=== PATIENT | female | born 1940 | race Caucasian/White ===

== ENCOUNTER 2018-07-16 14:21 | Inpatient (IN) | payer MEDICARE | END 2018-07-22 10:55 | disposition home or self-care (01) | LOC: SSTAY O 14:21 → MED 3N 07-19 11:25 → SSTAY O 20:14 → MED 3N 20:11 → ICU 2S 07-17 09:42 | PROC: 02100A3 Bypass Coronary Artery, One Artery from Coronary Artery with Autologous Arterial Tissue, Open Approach (ICD-10-PCS; principal; 2018-07-17 07:02) | PROC: 0210099 Bypass Coronary Artery, One Artery from Left Internal Mammary with Autologous Venous Tissue, Open Approach (ICD-10-PCS; 2018-07-17 07:02) | PROC: 06BP4ZZ Excision of Right Saphenous Vein, Percutaneous Endoscopic Approach (ICD-10-PCS; 2018-07-17 07:02) | PROC: 02L70ZK Occlusion of Left Atrial Appendage, Open Approach (ICD-10-PCS; 2018-07-17 07:02) | DX: I25.10 Atherosclerotic heart disease of native coronary artery without angina pectoris (principal); Z86.73 Personal history of transient ischemic attack (TIA), and cerebral infarction without residual deficits ==

== ENCOUNTER 2021-01-16 12:30 | Inpatient (IN) | payer MEDICARE ==
[~2021-01-16] VITALS: Ht 165.1 cm; Wt 78.4 kg
[~2021-01-16 12:30] MED LIST: ASPI81TA52 PO; ATOR40TA PO; CHOL10002 PO; COL100C PO; HYDR-4383 PO; LORA-512 PO; METO50TA16 PO; MULT-1085 PO; OMEG1CAP46 PO
[2021-01-16 13:13] LABS: BASOPHILS # (AUTO) 0.1 X10'3 (0-0.2); BASOPHILS % (AUTO) 0.8 % (0-1); EOSINOPHILS # (AUTO) 0.2 X10'3 (0-0.9); EOSINOPHILS % (AUTO) 2.4 % (0-6); HEMATOCRIT 41.2 % (35.0-45.0); HEMOGLOBIN 13.6 g/dl (12.0-16.0); LYMPHOCYTES # (AUTO) 1.6 X10'3 (1.1-4.8); LYMPHOCYTES % (AUTO) 20.2 % (21-51); MEAN CORPUSCULAR HEMOGLOBIN 29.3 PG (27.0-31.0); MEAN CORPUSCULAR VOLUME 88.7 FL (78-98); MEAN PLATELET VOLUME 8.4 FL (7.4-10.4); MONOCYTES # (AUTO) 0.7 X10'3 (0-0.9); MONOCYTES % (AUTO) 8.3 % (2-12); NEUTROPHILS # (AUTO) 5.5 X10'3 (1.8-7.7); NEUTROPHILS % (AUTO) 68.3 % (42-75); PLATELET COUNT 220 X10'3 (140-440); RED BLOOD COUNT 4.65 X10'6 (4.20-5.60); RED CELL DISTRIBUTION WIDTH 14.9 % (11.5-14.5); WHITE BLOOD COUNT 8.1 X10'3 (4.5-11.0)
[2021-01-16 13:29] LABS: ALANINE AMINOTRANSFERASE 18 U/L (12-78); ALBUMIN 3.6 G/DL (3.4-5.0); ALBUMIN/GLOBULIN RATIO 0.9 (1.1-1.5); ALKALINE PHOSPHATASE 112 IU/L (46-116); ANION GAP 9 (8-16); ASPARTATE AMINO TRANSFERASE 13 U/L (10-37); BILIRUBIN,TOTAL 0.4 MG/DL (0.1-1.0); BLOOD UREA NITROGEN 16 MG/DL (7-18); BUN/CREATININE RATIO 15.8 (6.6-38.0); CALCIUM 8.8 MG/DL (8.5-10.1); CHLORIDE 107 MMOL/L (99-107); CREATININE 1.01 MG/DL (0.40-0.90); GLUCOSE 112 MG/DL (70-104); POTASSIUM 3.8 MMOL/L (3.5-5.1); SODIUM 142 MMOL/L (135-145); TOTAL CARBON DIOXIDE 25.6 MMOL/L (24-32); TOTAL PROTEIN 7.4 G/DL (6.4-8.2); eGFR 53 ML/MIN
[2021-01-16] MEDS ORDERED: iohexol 350MG/ML 100ml bottle IV ONE (14:21)
[2021-01-16] MEDS ORDERED: ondansetron/PF 4mg/2ml inj IV PRN (15:20)
[2021-01-16] MEDS ORDERED: magnesium 4gm in 100ml NS 100 ML IV PRN (15:20)
[2021-01-16] MEDS ORDERED: potassium Cl 20 mEq SR tablet PO PRN ×2 (15:20)
[2021-01-16] MEDS ORDERED: acetaminophen 325mg tablet PO PRN (15:20)
[2021-01-16] MEDS ORDERED: potassium Cl 40MEQ/1/2NS 520ml 520 ML IV PRN ×2 (15:20)
[2021-01-16] MEDS ORDERED: PERFLUTREN PROTEIN-A MICROSPHR (Optison) 0.22 MG/ML 3ML VIAL IV ONE (15:20)
[2021-01-16] MEDS ORDERED: magnesium Cl slow-release 64mg tablet PO PRN (15:20)
[2021-01-16] MEDS ORDERED: magnesium 2GM in 50ml NS 50 ML IV PRN (15:20)
[2021-01-16] MEDS ORDERED: LOP12.5T PO (18:13)
[2021-01-16] MEDS ORDERED: LISI20TA PO (18:13)
[2021-01-16] MEDS: K and/or MAG REPLACEMENT MC SCH (19:47)
[2021-01-16] MEDS: normal saline 1000ml 1,000 ML IV SCH (19:51)
[2021-01-16] MEDS ORDERED: temazepam 15mg capsule PO PRN (21:00)
[2021-01-17 01:20] VITALS: BP_SYST 151; BP_SYST 160; BP_DIAS 83; BP_DIAS 88
--- NOTE | 2021-01-17 01:20 | NUR ---
Patient arrived from ER on [facility] at this time and walked from [facility] to bed without difficulty.
--- NOTE | 2021-01-17 02:20 | NUR ---
When asked if the numbness was gone to her right face she said it went all away around 5 on Monday night. She also expressed that she had some vertigo on and some blurred vision for last couple of days. But now she feels fine and is staying so she can have the Echo and MRI/MRA and hopes to go home soon.
[2021-01-17] MEDS: normal saline 1000ml 1,000 ML IV SCH (02:40)
[2021-01-17 06:00] VITALS: BP 115/75
--- NOTE | 2021-01-17 06:05 | NUR ---
RECEIVED REPORT FROM HARVEY WAGNER
--- NOTE | 2021-01-17 06:20 | NUR ---
Problems reprioritized. Patient report given, questions answered & plan of care reviewed with Karo GABRIEL.
[2021-01-17 07:04] LABS: BASOPHILS % (AUTO) 0.7 % (0-1); EOSINOPHILS # (AUTO) 0.1 X10'3 (0-0.9); EOSINOPHILS % (AUTO) 2.1 % (0-6); HEMATOCRIT 40.3 % (35.0-45.0); HEMOGLOBIN 13.2 g/dl (12.0-16.0); LYMPHOCYTES # (AUTO) 1.4 X10'3 (1.1-4.8); LYMPHOCYTES % (AUTO) 21.9 % (21-51); MEAN CORPUSCULAR HGB CONC 32.8 g/dL (33.0-36.5); MEAN CORPUSCULAR VOLUME 88.5 FL (78-98); MEAN PLATELET VOLUME 8.2 FL (7.4-10.4); MONOCYTES # (AUTO) 0.7 X10'3 (0-0.9); MONOCYTES % (AUTO) 10.2 % (2-12); NEUTROPHILS # (AUTO) 4.2 X10'3 (1.8-7.7); NEUTROPHILS % (AUTO) 65.1 % (42-75); PLATELET COUNT 191 X10'3 (140-440); RED BLOOD COUNT 4.55 X10'6 (4.20-5.60); RED CELL DISTRIBUTION WIDTH 14.4 % (11.5-14.5); WHITE BLOOD COUNT 6.5 X10'3 (4.5-11.0)
[2021-01-17 07:10] LABS: ALBUMIN 3.4 G/DL (3.4-5.0); ANION GAP 8 (8-16); BLOOD UREA NITROGEN 13 MG/DL (7-18); BUN/CREATININE RATIO 13.5 (6.6-38.0); CALCIUM 8.7 MG/DL (8.5-10.1); CHLORIDE 110 MMOL/L (99-107); CREATININE 0.96 MG/DL (0.40-0.90); GLUCOSE 104 MG/DL (70-104); MAGNESIUM 2.3 MG/DL (1.5-2.4); POTASSIUM 4.3 MMOL/L (3.5-5.1); SODIUM 144 MMOL/L (135-145); TOTAL CARBON DIOXIDE 25.6 MMOL/L (24-32); eGFR 56 ML/MIN
[2021-01-17] MEDS: K and/or MAG REPLACEMENT MC SCH (08:00)
--- NOTE | 2021-01-17 12:46 | NUR ---
PT D/C WITH INSTRUCTIONS, UNDERSTANDING OF INSTRUCTIONS AND W/ALL BELONGINGS WALKING OUT TO PRIVATE VEHICLE TO GO HOME TO F/U W/PCP
--- NOTE | 2021-01-17 15:23 | NUR ---
hospitalist f/u with [facility] tele med in regards to mri reading possibly embolic, pt symptoms had resolved by the time I was taking care of her, and it was recommended by dr. falcon to have the patient take plavix and asprin as well as to f/u w/her pcp in regards to tele monitoring, sent a page to hospitalist to let hospitalist know about the soc. dr. roe
--- NOTE | 2021-01-17 15:34 | NUR ---
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
== END 2021-01-17 12:45 | disposition home or self-care (01) | DRG 66 ==
LOC: ER 12:30 → ED HOLD 15:20 → ORTHO 4S 01-17 01:00
PROVIDERS: ADMIT Internal Medicine; ATTEND Internal Medicine
PROC: B3251ZZ Computerized Tomography (CT Scan) of Bilateral Common Carotid Arteries using Low Osmolar Contrast (ICD-10-PCS; principal; 2021-01-16)
PROC: B32G1ZZ Computerized Tomography (CT Scan) of Bilateral Vertebral Arteries using Low Osmolar Contrast (ICD-10-PCS; 2021-01-16)
PROC: B32R1ZZ Computerized Tomography (CT Scan) of Intracranial Arteries using Low Osmolar Contrast (ICD-10-PCS; 2021-01-16)
PROC: B3281ZZ Computerized Tomography (CT Scan) of Bilateral Internal Carotid Arteries using Low Osmolar Contrast (ICD-10-PCS; 2021-01-16)
DX: I63.9 Cerebral infarction, unspecified (principal); E78.5 Hyperlipidemia, unspecified; I25.10 Atherosclerotic heart disease of native coronary artery without angina pectoris; R29.700 NIHSS score 0; Z86.73 Personal history of transient ischemic attack (TIA), and cerebral infarction without residual deficits; Z95.1 Presence of aortocoronary bypass graft; Z80.9 Family history of malignant neoplasm, unspecified; Z84.89 Family history of other specified conditions; Z79.899 Other long term (current) drug therapy; Z79.82 Long term (current) use of aspirin
CPT/HCPCS: 36415; 70450; 70496; 70498; 70551; 80048; 80053; 82948; 83735; 85025; 85610; 93005; 93306; 97161; 97530; 99285; G0378; J7030; Q9967

== ENCOUNTER 2023-05-22 09:49 | Inpatient (IN) | payer MEDICARE ==
[2023-05-22] VITALS (9 sets, daily range): BP systolic 106–115; BP diastolic 61–67; PULSE 127–147; RESP 7–29; TEMP 97.1; O2SAT 98–99
[~2023-05-22] VITALS: Ht 165.1 cm; Wt 73.0 kg
[~2023-05-22 09:49] MED LIST changes: +AMOX-580 PO; -ASPI81TA52 PO; +ASPI81TA53 PO; +ATOR-2 PO; -ATOR40TA PO; -COL100C PO; +FURO20TA4 PO; -HYDR-4383 PO; +LISI10TA27 PO; +LOP12.5T PO; -LORA-512 PO; -METO50TA16 PO; +OMEG-79 PO; -OMEG1CAP46 PO; +SACU1TAB PO; +SPIR25TA PO; +TICA90TA PO
[2023-05-22] MEDS ORDERED: ketamine 10mg/ml 20ml inj 100 MG in normal saline 100ml IV soln 90 ML IV SCH (10:10)
[2023-05-22 10:13] LABS: BASOPHILS % (AUTO) 0.1 % (0-1); EOSINOPHILS % (AUTO) 0.2 % (0-6); HEMATOCRIT 36.6 % (35.0-45.0); HEMOGLOBIN 12.1 g/dl (12.0-16.0); LYMPHOCYTES # (AUTO) 0.8 X10'3 (1.1-4.8); LYMPHOCYTES % (AUTO) 4.9 % (21-51); MEAN CORPUSCULAR HEMOGLOBIN 29.1 PG (27.0-31.0); MEAN CORPUSCULAR VOLUME 88.4 FL (78-98); MONOCYTES # (AUTO) 1.5 X10'3 (0-0.9); MONOCYTES % (AUTO) 9.3 % (2-12); NEUTROPHILS # (AUTO) 13.9 X10'3 (1.8-7.7); NEUTROPHILS % (AUTO) 85.5 % (42-75); PLATELET COUNT 287 X10'3 (140-440); RED BLOOD COUNT 4.14 X10'6 (4.20-5.60); RED CELL DISTRIBUTION WIDTH 13.7 % (11.5-14.5); WHITE BLOOD COUNT 16.3 X10'3 (4.5-11.0)
[2023-05-22] MEDS: ketamine 10mg/ml 20ml inj vial IV ONE (10:20)
[2023-05-22] MEDS ORDERED: amiodarone 50MG/ML inj IV ONE (10:20)
[2023-05-22] MEDS ORDERED: amiodarone 150mg/dext, iso-os 100 ML IV ONE (10:25)
[2023-05-22] MEDS: amiodarone 150mg/dext, iso-os 100 ML IV ONE ×2 (10:27→14:23)
[2023-05-22 10:33] LABS: ALANINE AMINOTRANSFERASE 252 U/L (12-78); ALBUMIN 1.9 G/DL (3.4-5.0); ALBUMIN/GLOBULIN RATIO 0.4 (1.1-1.5); ALKALINE PHOSPHATASE 143 IU/L (46-116); ANION GAP 18 (8-16); ASPARTATE AMINO TRANSFERASE 177 U/L (10-37); BILIRUBIN,TOTAL 0.9 MG/DL (0.1-1.0); BLOOD UREA NITROGEN 45 MG/DL (7-18); BUN/CREATININE RATIO 25.9 (10.0-20.0); CALCIUM 8.8 MG/DL (8.5-10.1); CHLORIDE 95 MMOL/L (99-107); CREATININE 1.74 MG/DL (0.40-0.90); GLUCOSE 131 MG/DL (70-104); PRO BRAIN NATRIURETIC PEPTIDE 13522 PG/ML (0-450); SODIUM 133 MMOL/L (135-145); TOTAL CARBON DIOXIDE 20.5 MMOL/L (24-32); TOTAL PROTEIN 6.8 G/DL (6.4-8.2); eCRCL 23 ML/MIN; eGFR 28 ML/MIN
[2023-05-22 10:34] LABS: POTASSIUM 2.6 MMOL/L (3.5-5.1)
[2023-05-22] MEDS: normal saline 1000ML IV soln IVB ONE ×3 (11:00→12:09)
[2023-05-22] MEDS: ondansetron/PF 4mg/2ml inj IV ONE (11:05)
[2023-05-22] MEDS: potassium Cl 20 mEq SR tablet PO ONE (11:05)
[2023-05-22] MEDS: potassium Cl 40MEQ/1/2NS 520ml 520 ML IV SCH (12:17)
[2023-05-22] MEDS ORDERED: magnesium hydroxide 30ml (MOM) UD suspension PO PRN ×2 (13:55→18:10)
[2023-05-22] MEDS ORDERED: magnesium 2GM in 50ml NS 50 ML IV PRN ×2 (13:55→18:10)
[2023-05-22] MEDS ORDERED: ondansetron/PF 4mg/2ml inj IV PRN ×2 (13:55→18:10)
[2023-05-22] MEDS: K and/or MAG REPLACEMENT MC SCH ×2 (13:55→20:25)
[2023-05-22] MEDS ORDERED: morphine 2 MG/ML inj. syringe IV PRN (13:55)
[2023-05-22] MEDS ORDERED: acetaminophen 325mg tablet PO PRN ×3 (13:55→18:10)
[2023-05-22] MEDS ORDERED: magnesium 4gm in 100ml NS 100 ML IV PRN ×2 (13:55→18:10)
[2023-05-22] MEDS ORDERED: morphine 4 MG/ML inj SYRINge IV PRN (13:55)
[2023-05-22] MEDS: amiodarone/D5 360MG/200ML BAG 200 ML IV SCH (14:03)
[2023-05-22] MEDS: normal saline 1000ml 1,000 ML IV SCH ×2 (14:05→19:16)
[2023-05-22] MEDS: normal saline 500ml IV soln 500 ML IV ONE (14:12)
[2023-05-22] MEDS: normal saline 1000ml 1,000 ML IVB ONE ×2 (14:14→15:03)
[2023-05-22] MEDS ORDERED: LidoCAINE 2% Topical Jelly 11mL syringe TOP ONE (14:20)
[2023-05-22 14:21] LABS: MAGNESIUM 2.1 MG/DL (1.5-2.4)
[2023-05-22] MEDS: digoxin 250mcg/ml 2ml ampule IV ONE ×2 (14:23→20:39)
[2023-05-22] MEDS: albumin (human) 25% 100 ML IV solution IV ONE (14:24)
[2023-05-22] MEDS: LIDOcaine 2% 10ml TOPICAL JELLY (Urojet) TP ONE (14:29)
[2023-05-22] MEDS: LidoCAINE 2% Topical Jelly 11mL syringe TOP ONE (14:45)
[2023-05-22] MEDS: albumin (Human) 5% 250ml 250 ML IV ONE (17:39)
[2023-05-22] MEDS ORDERED: magnesium Cl slow-release 64mg tablet PO PRN (18:10)
[2023-05-22] MEDS ORDERED: potassium Cl 20 mEq SR tablet PO PRN ×2 (18:10)
[2023-05-22] MEDS ORDERED: mag hydrox/Alum hydrox/simeth 30ml oral suspension PO PRN (18:10)
[2023-05-22] MEDS: docusate sod 100mg capsule PO SCH (19:16)
[2023-05-22] MEDS: CefTRIAXone/D5W-Rocephin 1gm 50 ML IV SCH (19:21)
[2023-05-22] MEDS: normal saline 1000ml 1,000 ML IV STA (19:30)
[2023-05-22] MEDS: clopidogrel 300mg tablet PO ONE (19:53)
[2023-05-22] MEDS: apixaban 5mg tablet PO SCH (19:54)
[2023-05-22 20:14] LABS: BILIRUBIN,URINE NEGATIVE (Neg); CLARITY,URINE CLEAR (Clear); COLOR,URINE YELLOW (Yellow); GLUCOSE, URINE NEGATIVE (Neg); KETONES,URINE NEGATIVE (Neg); LEUKOCYTE ESTERASE ,URINE NEGATIVE (Neg); NITRITES, URINE NEGATIVE (Neg); OCCULT BLOOD,URINE SMALL (Neg); PH,URINE 5.5 (4.8-8.0); PROTEIN,URINE TRACE mg/dl (Neg); UROBILINOGEN,URINE 0.2 E.U/dL (0.2-1.0)
[2023-05-22 20:18] LABS: UA COLLECTION TYPE FOLEY CATH
[2023-05-22 20:25] LABS: MUCUS STRANDS FEW /LPF (Neg); SQUAMOUS EPITHELIAL CELL,UR FEW /LPF (FEW); URIC ACID CRYSTALS 2+ /HPF (NEGATIVE)
[2023-05-22 20:27] LABS: BACTERIA,URINE 1+ /HPF (Neg); RBC,URINE 0-2 /HPF (0-2); WBC,URINE 0-4 /HPF (0-4)
[2023-05-22 20:28] LABS: TRANSITIONAL EPI CELLS,URINE FEW /HPF
[2023-05-22] MEDS: diltiazem 5mg/ml 5ml inj. IV ONE (21:08)
[2023-05-23] VITALS (29 sets, daily range): BP systolic 90–126; BP diastolic 49–75; PULSE 77–153; RESP 10–29; TEMP 97.2–98.5; O2SAT 95–98
[2023-05-23] MEDS ORDERED: heparin, porcine 5000 units/ml vial SQ SCH
[2023-05-23] MEDS: diltiazem-NS 100mg/100ml 100 ML IV SCH (00:34)
[2023-05-23] MEDS: azithromycin/NS 500mg/250ml 250 ML IV SCH (00:41)
[2023-05-23] MEDS: digoxin 250mcg/ml 2ml ampule IV ONE (01:26)
[2023-05-23] MEDS: clopidogrel 75mg tablet PO SCH (09:47)
[2023-05-23] MEDS: metoprolol tartrate 50mg tablet PO SCH (09:47)
[2023-05-23] MEDS: aspirin 81mg tab.chew PO SCH (09:47)
[2023-05-23 09:59] LABS: BASOPHILS % (AUTO) 0.1 % (0-1); EOSINOPHILS # (AUTO) 0.1 X10'3 (0-0.9); EOSINOPHILS % (AUTO) 1.2 % (0-6); HEMATOCRIT 31.5 % (35.0-45.0); HEMOGLOBIN 10.5 g/dl (12.0-16.0); LYMPHOCYTES # (AUTO) 0.7 X10'3 (1.1-4.8); LYMPHOCYTES % (AUTO) 6.2 % (21-51); MEAN CORPUSCULAR HEMOGLOBIN 29.4 PG (27.0-31.0); MEAN CORPUSCULAR HGB CONC 33.4 g/dL (33.0-36.5); MEAN PLATELET VOLUME 7.8 FL (7.4-10.4); MONOCYTES # (AUTO) 1.1 X10'3 (0-0.9); NEUTROPHILS # (AUTO) 9.8 X10'3 (1.8-7.7); NEUTROPHILS % (AUTO) 83.5 % (42-75); PLATELET COUNT 258 X10'3 (140-440); RED BLOOD COUNT 3.58 X10'6 (4.20-5.60); WHITE BLOOD COUNT 11.8 X10'3 (4.5-11.0)
[2023-05-23 10:07] LABS: APTT 33 SECONDS (22-32); INR 1.1 INR; PROTHROMBIN TIME 12.2 SECONDS (9.0-12.0)
[2023-05-23 10:17] LABS: ALANINE AMINOTRANSFERASE 206 U/L (12-78); ALBUMIN 1.7 G/DL (3.4-5.0); ALBUMIN/GLOBULIN RATIO 0.4 (1.1-1.5); ALKALINE PHOSPHATASE 115 IU/L (46-116); ANION GAP 14 (8-16); ASPARTATE AMINO TRANSFERASE 123 U/L (10-37); BILIRUBIN,TOTAL 0.5 MG/DL (0.1-1.0); BLOOD UREA NITROGEN 21 MG/DL (7-18); BUN/CREATININE RATIO 21.6 (10.0-20.0); CALCIUM 7.6 MG/DL (8.5-10.1); CHLORIDE 105 MMOL/L (99-107); CREATININE 0.97 MG/DL (0.40-0.90); DIGOXIN 0.7 NG/ML (0.9-1.9); GLUCOSE 144 MG/DL (70-104); MAGNESIUM 1.8 MG/DL (1.5-2.4); PHOSPHORUS 1.8 MG/DL (2.3-4.5); POTASSIUM 3.4 MMOL/L (3.5-5.1); SODIUM 137 MMOL/L (135-145); TOTAL PROTEIN 5.8 G/DL (6.4-8.2); eCRCL 42 ML/MIN; eGFR 55 ML/MIN
[2023-05-23] MEDS: amiodarone/D5 360MG/200ML BAG 200 ML IV SCH (12:30)
[2023-05-23] MEDS: ipratropium/albuterol 3ml nebule NEB SCH (13:45)
[2023-05-23] MEDS ORDERED: ipratropium/albuterol 3ml nebule NEB PRN (13:45)
[2023-05-23] MEDS: potassium Cl 20 mEq SR tablet PO PRN (14:58)
[2023-05-23] MEDS: CefTRIAXone/D5W-Rocephin 1gm 50 ML IV SCH (18:00)
[2023-05-23] MEDS ORDERED: iohexol 350MG/ML 100ml bottle IV ONE (19:43)
[2023-05-23 20:24] LABS: D-DIMER 5.21 MG/L FEU (0-0.50)
[2023-05-23] MEDS: atorvastatin 20mg tablet PO SCH (20:29)
[2023-05-24] VITALS (25 sets, daily range): BP systolic 100–167; BP diastolic 55–94; PULSE 82–151; RESP 9–31; TEMP 97–97.3; O2SAT 96–99
[2023-05-24 01:46] LABS: BASOPHILS % (AUTO) 0.1 % (0-1); EOSINOPHILS # (AUTO) 0.1 X10'3 (0-0.9); EOSINOPHILS % (AUTO) 1.3 % (0-6); HEMATOCRIT 27.2 % (35.0-45.0); HEMOGLOBIN 9.1 g/dl (12.0-16.0); LYMPHOCYTES # (AUTO) 0.7 X10'3 (1.1-4.8); LYMPHOCYTES % (AUTO) 7.2 % (21-51); MEAN CORPUSCULAR HEMOGLOBIN 29.5 PG (27.0-31.0); MEAN CORPUSCULAR HGB CONC 33.6 g/dL (33.0-36.5); MEAN CORPUSCULAR VOLUME 87.6 FL (78-98); MEAN PLATELET VOLUME 7.5 FL (7.4-10.4); MONOCYTES # (AUTO) 0.9 X10'3 (0-0.9); MONOCYTES % (AUTO) 10.2 % (2-12); NEUTROPHILS # (AUTO) 7.5 X10'3 (1.8-7.7); NEUTROPHILS % (AUTO) 81.2 % (42-75); PLATELET COUNT 259 X10'3 (140-440); RED CELL DISTRIBUTION WIDTH 14.3 % (11.5-14.5); WHITE BLOOD COUNT 9.3 X10'3 (4.5-11.0)
[2023-05-24 01:53] LABS: APTT 36 SECONDS (22-32); INR 1.3 INR; PROTHROMBIN TIME 14.1 SECONDS (9.0-12.0)
[2023-05-24 02:00] LABS: ALANINE AMINOTRANSFERASE 146 U/L (12-78); ALBUMIN 1.4 G/DL (3.4-5.0); ALBUMIN/GLOBULIN RATIO 0.4 (1.1-1.5); ALKALINE PHOSPHATASE 94 IU/L (46-116); ANION GAP 14 (8-16); ASPARTATE AMINO TRANSFERASE 75 U/L (10-37); BILIRUBIN,TOTAL 0.3 MG/DL (0.1-1.0); BLOOD UREA NITROGEN 12 MG/DL (7-18); BUN/CREATININE RATIO 15.8 (10.0-20.0); CALCIUM 7.3 MG/DL (8.5-10.1); CHLORIDE 107 MMOL/L (99-107); CREATININE 0.76 MG/DL (0.40-0.90); GLUCOSE 114 MG/DL (70-104); MAGNESIUM 1.5 MG/DL (1.5-2.4); PHOSPHORUS 1.3 MG/DL (2.3-4.5); POTASSIUM 3.2 MMOL/L (3.5-5.1); SODIUM 139 MMOL/L (135-145); TOTAL CARBON DIOXIDE 17.8 MMOL/L (24-32); TOTAL PROTEIN 4.9 G/DL (6.4-8.2); eCRCL 53 ML/MIN; eGFR 73 ML/MIN
[2023-05-24] MEDS: potassium Cl 20 mEq SR tablet PO PRN (02:46)
[2023-05-24 09:52] LABS: ALANINE AMINOTRANSFERASE 138 U/L (12-78); ALBUMIN 1.4 G/DL (3.4-5.0); ALBUMIN/GLOBULIN RATIO 0.4 (1.1-1.5); ALKALINE PHOSPHATASE 87 IU/L (46-116); ANION GAP 10 (8-16); ASPARTATE AMINO TRANSFERASE 70 U/L (10-37); BILIRUBIN,TOTAL 0.3 MG/DL (0.1-1.0); BLOOD UREA NITROGEN 9 MG/DL (7-18); BUN/CREATININE RATIO 14.5 (10.0-20.0); CALCIUM 6.9 MG/DL (8.5-10.1); CHLORIDE 111 MMOL/L (99-107); CREATININE 0.62 MG/DL (0.40-0.90); GLUCOSE 133 MG/DL (70-104); POTASSIUM 3.2 MMOL/L (3.5-5.1); SODIUM 139 MMOL/L (135-145); TOTAL CARBON DIOXIDE 17.7 MMOL/L (24-32); TOTAL PROTEIN 4.8 G/DL (6.4-8.2); eCRCL 65 ML/MIN; eGFR > 90 ML/MIN
[2023-05-24] MEDS ORDERED: ondansetron 4mg rapidly disintigrating tab PO PRN (11:00)
[2023-05-24] MEDS: potassium Cl 40MEQ/1/2NS 520ml 520 ML IV PRN (12:35)
[2023-05-24] MEDS ORDERED: digoxin 250mcg (0.25mg) tablet PO ONE (12:45)
[2023-05-24] MEDS: digoxin 125mcg (0.125mg) tablet PO ONE (13:23)
[2023-05-24] MEDS: metoprolol tartrate 50mg tablet PO SCH (14:34)
[2023-05-25] VITALS (20 sets, daily range): BP systolic 131–180; BP diastolic 63–83; PULSE 80–107; RESP 8–33; TEMP 97.3–98.3; O2SAT 94–100
[2023-05-25 09:09] LABS: ABG BASE EXCESS -6.1 mmol/L (-2.0-2.0); ABG HCO3 17.6 mmol/L (22.0-26.0); ABG OXYGEN SATURATION 95.2 % (94-97); ABG PO2 (T) 71.9 mmHg (75.0-100.0); FCOHb 0.3 % (0.0-3.9); FHHb 4.8 % (0.0-5.0); FLOW 5 L/min; FMetHb 0.3 % (0.0-1.5); FO2Hb 94.6 % (94-97); MODE NASAL CANNULA; TOTAL HEMOGLOBIN 11.4 G/dl (12.0-16.0)
[2023-05-25] MEDS: captoPRIL 25mg tablet PO SCH (09:27)
[2023-05-25 11:21] LABS: ABG BASE EXCESS -2.7 mmol/L (-2.0-2.0); ABG HCO3 20.1 mmol/L (22.0-26.0); ABG OXYGEN SATURATION 98.1 % (94-97); ABG PCO2 (T) 29.2 mmHg (32.0-45.0); ABG PH (T) 7.456 (7.350-7.450); ABG PO2 (T) 99.1 mmHg (75.0-100.0); ALLEN'S TEST POSITIVE; FCOHb 0.3 % (0.0-3.9); FHHb 1.9 % (0.0-5.0); FMetHb 0.3 % (0.0-1.5); FO2Hb 97.5 % (94-97); MODE MASK - BIPAP; TOTAL HEMOGLOBIN 12.1 G/dl (12.0-16.0)
[2023-05-25] MEDS ORDERED: hydrALAZINE 20mg/ml inj. IV PRN (11:55)
[2023-05-25] MEDS: azithromycin 250mg tablet PO SCH (11:58)
[2023-05-25] MEDS: furosemide 40mg/4ml inj IV ONE (12:11)
[2023-05-25] MEDS: methylPREDNISolone sod succ 125mg/2ml vial IV ONE (12:11)
[2023-05-25] MEDS: piperacillin/tazo 3.375gm/50ml 50 ML IV SCH (14:05)
[2023-05-25] MEDS: amiodarone 200mg tablet PO SCH (18:13)
[2023-05-25] MEDS: methylPREDNISolone sod succ/PF 40mg inj. IV SCH (19:58)
[2023-05-25] MEDS: metoprolol succinate 25mg (24-HOUR) SR. Tablet PO SCH (19:58)
[2023-05-26] VITALS (14 sets, daily range): BP systolic 99–156; BP diastolic 48–83; PULSE 58–105; RESP 12–26; TEMP 97.3–98.1; O2SAT 94–99
[2023-05-26 05:20] LABS: BASOPHILS % (AUTO) 0.1 % (0-1); EOSINOPHILS % (AUTO) 0 % (0-6); HEMATOCRIT 28.3 % (35.0-45.0); HEMOGLOBIN 9.6 g/dl (12.0-16.0); LYMPHOCYTES # (AUTO) 0.4 X10'3 (1.1-4.8); MEAN CORPUSCULAR HEMOGLOBIN 29.5 PG (27.0-31.0); MEAN CORPUSCULAR HGB CONC 33.9 g/dL (33.0-36.5); MEAN PLATELET VOLUME 7.3 FL (7.4-10.4); MONOCYTES # (AUTO) 0.4 X10'3 (0-0.9); MONOCYTES % (AUTO) 2.9 % (2-12); NEUTROPHILS # (AUTO) 12.2 X10'3 (1.8-7.7); PLATELET COUNT 383 X10'3 (140-440); RED BLOOD COUNT 3.26 X10'6 (4.20-5.60); RED CELL DISTRIBUTION WIDTH 14.2 % (11.5-14.5)
[2023-05-26 05:23] LABS: APTT 33 SECONDS (22-32); INR 1.3 INR
[2023-05-26 05:27] LABS: ALANINE AMINOTRANSFERASE 122 U/L (12-78); ALBUMIN 1.7 G/DL (3.4-5.0); ALBUMIN/GLOBULIN RATIO 0.4 (1.1-1.5); ALKALINE PHOSPHATASE 102 IU/L (46-116); ANION GAP 8 (8-16); ASPARTATE AMINO TRANSFERASE 54 U/L (10-37); BILIRUBIN,TOTAL 0.5 MG/DL (0.1-1.0); BLOOD UREA NITROGEN 12 MG/DL (7-18); BUN/CREATININE RATIO 12.1 (10.0-20.0); CHLORIDE 105 MMOL/L (99-107); CREATININE 0.99 MG/DL (0.40-0.90); GLUCOSE 153 MG/DL (70-104); MAGNESIUM 2.1 MG/DL (1.5-2.4); PHOSPHORUS 3.6 MG/DL (2.3-4.5); POTASSIUM 4.1 MMOL/L (3.5-5.1); SODIUM 137 MMOL/L (135-145); TOTAL PROTEIN 6.1 G/DL (6.4-8.2); eCRCL 41 ML/MIN; eGFR 54 ML/MIN
[2023-05-26 05:52] LABS: CALCIUM 8.7 MG/DL (8.5-10.1)
[2023-05-26] MEDS: spironolactone 25 MG tablet PO SCH (08:30)
[2023-05-26] MEDS: sacubitril/valsartan 24mg-26mg tablet PO SCH (19:05)
[2023-05-27] VITALS (8 sets, daily range): BP systolic 102–152; BP diastolic 47–77; PULSE 88–99; RESP 14–26; TEMP 97–97.9; O2SAT 94–99
[2023-05-27 06:18] LABS: APTT 33 SECONDS (22-32); INR 1.3 INR
[2023-05-27 06:31] LABS: BASOPHILS % (AUTO) 0.1 % (0-1); EOSINOPHILS % (AUTO) 0 % (0-6); HEMATOCRIT 28.4 % (35.0-45.0); HEMOGLOBIN 9.4 g/dl (12.0-16.0); LYMPHOCYTES # (AUTO) 0.8 X10'3 (1.1-4.8); LYMPHOCYTES % (AUTO) 3.7 % (21-51); MEAN CORPUSCULAR HEMOGLOBIN 28.8 PG (27.0-31.0); MEAN CORPUSCULAR HGB CONC 33.1 g/dL (33.0-36.5); MEAN CORPUSCULAR VOLUME 87.2 FL (78-98); MEAN PLATELET VOLUME 7.5 FL (7.4-10.4); MONOCYTES % (AUTO) 4.5 % (2-12); NEUTROPHILS # (AUTO) 19.3 X10'3 (1.8-7.7); NEUTROPHILS % (AUTO) 91.7 % (42-75); PLATELET COUNT 484 X10'3 (140-440); RED BLOOD COUNT 3.26 X10'6 (4.20-5.60); RED CELL DISTRIBUTION WIDTH 14.1 % (11.5-14.5); WHITE BLOOD COUNT 21.1 X10'3 (4.5-11.0)
[2023-05-27 06:33] LABS: ALANINE AMINOTRANSFERASE 136 U/L (12-78); ALBUMIN 2.1 G/DL (3.4-5.0); ALBUMIN/GLOBULIN RATIO 0.5 (1.1-1.5); ALKALINE PHOSPHATASE 100 IU/L (46-116); ANION GAP 10 (8-16); ASPARTATE AMINO TRANSFERASE 62 U/L (10-37); BILIRUBIN,TOTAL 0.6 MG/DL (0.1-1.0); BLOOD UREA NITROGEN 21 MG/DL (7-18); BUN/CREATININE RATIO 17.8 (10.0-20.0); CALCIUM 8.8 MG/DL (8.5-10.1); CHLORIDE 107 MMOL/L (99-107); CREATININE 1.18 MG/DL (0.40-0.90); GLUCOSE 136 MG/DL (70-104); MAGNESIUM 1.9 MG/DL (1.5-2.4); PHOSPHORUS 3.6 MG/DL (2.3-4.5); POTASSIUM 3.7 MMOL/L (3.5-5.1); SODIUM 142 MMOL/L (135-145); TOTAL CARBON DIOXIDE 24.6 MMOL/L (24-32); TOTAL PROTEIN 6.2 G/DL (6.4-8.2); eCRCL 34 ML/MIN; eGFR 44 ML/MIN
== END 2023-05-27 15:08 | DRG 871 ==
LOC: ER 09:50 → ED HOLD 13:54 → PCU 3S 21:44
PROVIDERS: ADMIT Internal Medicine Critical Care Medicine; ATTEND Internal Medicine Critical Care Medicine
PROC: B32T1ZZ Computerized Tomography (CT Scan) of Left Pulmonary Artery using Low Osmolar Contrast (ICD-10-PCS; principal; 2023-05-23)
PROC: B3201ZZ Computerized Tomography (CT Scan) of Thoracic Aorta using Low Osmolar Contrast (ICD-10-PCS; 2023-05-23)
PROC: B32S1ZZ Computerized Tomography (CT Scan) of Right Pulmonary Artery using Low Osmolar Contrast (ICD-10-PCS; 2023-05-23)
PROC: 0W993ZZ Drainage of Right Pleural Cavity, Percutaneous Approach (ICD-10-PCS; 2023-05-24)
PROC: 5A09357 Assistance with Respiratory Ventilation, Less than 24 Consecutive Hours, Continuous Positive Airway Pressure (ICD-10-PCS; 2023-05-25)
DX: A41.9 Sepsis, unspecified organism (principal); I21.A1 Myocardial infarction type 2; J69.0 Pneumonitis due to inhalation of food and vomit; N17.0 Acute kidney failure with tubular necrosis; I50.23 Acute on chronic systolic (congestive) heart failure; I11.0 Hypertensive heart disease with heart failure; I48.91 Unspecified atrial fibrillation; I25.10 Atherosclerotic heart disease of native coronary artery without angina pectoris; E87.6 Hypokalemia; I95.9 Hypotension, unspecified; I25.5 Ischemic cardiomyopathy; Z86.73 Personal history of transient ischemic attack (TIA), and cerebral infarction without residual deficits; Z95.1 Presence of aortocoronary bypass graft; Z79.82 Long term (current) use of aspirin; Z79.899 Other long term (current) drug therapy; I25.2 Old myocardial infarction; Z95.5 Presence of coronary angioplasty implant and graft
CPT/HCPCS: 36415; 36600; 71045; 71275; 76604; 80053; 80162; 81001; 82803; 83605; 83735; 83880; 84100; 84145; 84484; 85018; 85025; 85379; 85610; 85730; 87081; 93005; 93971; 94640; 94660; 94760; 94799; 97161; 97530; 99285; A4615; A4620; A6213; A6250; A6258; A6402; A6449; C1751; C1758; G0378; J0282; J0456; J0696; J1160; J1940; J2405; J2543; J2920; J2930; J3480; J3490; J7030; J7040; P9045; P9047; Q9967